=== PATIENT | male | born 1960 | race Asian ===

== ENCOUNTER 2018-05-11 09:57 | Emergency (ER) | payer BC ==
[~2018-05-11] VITALS: Ht 167.6 cm; Wt 72.6 kg
[2018-05-11 10:05] VITALS: BP 148/94
--- NOTE | 2018-05-11 10:05 | NUR ---
ED Nurse Note: pt walked in to ED due to abdominal pain since yesterday after playing basketball. tender noted upper umblicus area. pt denies n/v/d. last BM was this mornign and it was normal. AAO x4. respirations even and non-labored noted. skin warm to touch. no open wound noted. on cafeteria monitor. will wait for the further order. son at the bed side.
[2018-05-11] MEDS ORDERED: NKM (10:08)
[2018-05-11] MEDS ORDERED: Isovue-300 100ml vial INJ PRN (10:30)
--- NOTE | 2018-05-11 10:30 | Emergency Room Report ---
History of Present Illness General Chief Complaint: Abdominal Pain Source: Patient Present Illness HPI Patient present with mid abdominal pain with a palpable mass reports that yesterday he was playing basketball While riding his bicycle home he felt increased pain in the mid abdomen Saw his primary physician was sent to the ER for further eval Denies any acute fall or other obvious trauma denies any chest pain or shortness of breath Denies any vomiting or diarrhea patient did have a bowel movement yesterday Pain is worse with touch Allergies: Coded Allergies: No Known Allergies (Unverified , 05/11/18) Patient History Past Medical History: see triage record Pertinent Family History: none Reviewed Nursing Documentation: PMH: Agreed; PSxH: Agreed Nursing Documentation-PMH Past Medical History: No Stated History Review of Systems All Other Systems: negative except mentioned in HPI Physical Exam Vital Signs Date Time Temp Pulse Resp B/P (MAP) Pulse Ox O2 Delivery O2 Flow Rate FiO2 05/11/18 10:04 98.1 51 14 160/93 98 Room Air Sp02 EP Interpretation: reviewed, normal General Appearance: no apparent distress Head: normocephalic, atraumatic Eyes: bilateral eye PERRL, bilateral eye EOMI ENT: hearing grossly normal, normal pharynx Neck: supple Respiratory: lungs clear, no respiratory distress, no retraction Cardiovascular #1: regular rate, rhythm Gastrointestinal: other - There is a palpable region just above the umbilical area irregular in shape approximately 3 x 2 cm, there is some firmness palpated twisted no obvious bowel gas sounds Genitourinary: no CVA tenderness Musculoskeletal: normal inspection Neurologic: alert, oriented x3 Skin: normal color, no rash Lymphatic: no adenopathy Medical Decision Making Diagnostic Impression: Primary Impression: Incarcerated ventral hernia Additional Impression: hernia, reduced ER Course With the history exam and presentation, multiple differentials considered, including but not limited to appendicitis, gastritis, cholecystitis, diverticulitis CT imaging does show evidence of a hernia Clinically I did also attempt reduction however was not successful Gen. surgery was consulted Please refer to Dr. Millan note for full specific however the hernia was reduced with further application of pressure Patient reevaluated after and is fully resolved with his discomfort Denies any nausea Cleared through surgery for outpatient care Blood work also at baseline levels Patient will require close outpatient follow-up CBC negative CMP negative UA negative CT/MRI/US Diagnostic Results CT/MRI/US Diagnostic Results : Impression CT abdomen pelvisImpression: Small midline ventral hernia, containing only fat, through the central rectus abdominis tendon cephalad to the umbilicus. There is slight infiltration of the hernia contents and surrounding fat which could indicate strangulation. Correlate with clinical findings Limited assessment of the GI tract, due to lack of enteric contrast demonstration Equivocal mild wall thickening and enhancement of the proximal jejunum, if real could indicate mild enteritis changes. Correlate with clinical finding Equivocal mild fatty liver 2 x 1 cm left adrenal nodule. Consider follow-up adrenal CT in one year Prominent prostate Incidental findings as noted, including basilar pulmonary dependent atelectatic changes, degenerative lumbar spondylosis, left upper pole renal cyst Last Vital Signs Date Time Temp Pulse Resp B/P (MAP) Pulse Ox O2 Delivery O2 Flow Rate FiO2 05/11/18 10:04 98.1 51 14 160/93 98 Room Air Status: improved Disposition: HOME, SELF-CARE Condition: Improved Additional Instructions: Patient is provided with the discharge instructions notified to follow up with primary doctor in the next 2-3 days otherwise return to the er with any worsening symptoms. Please note that this report is being documented using [employer] technology. This can lead to erroneous entry secondary to incorrect interpretation by the dictating instrument. Guera Montague DO May 11, 2018 10:30
--- NOTE | 2018-05-11 10:30 | NUR ---
ED Nurse Note: pt refused pain meds. Dr. Montague will notified.
[2018-05-11] MEDS: Ketorolac 30mg Inj IV ONE ×2 (10:34→10:37)
[2018-05-11 10:43] LABS: APPEARANCE,URINE CLEAR; BILIRUBIN, URINE NEGATIVE (NEGATIVE); COLOR,URINE PALE YELLOW; GLUCOSE, URINE (UA) NEGATIVE (NEGATIVE); KETONES,URINE NEGATIVE (NEGATIVE); LEUKOCYTE ESTERASE ,URINE 1+ (NEGATIVE); NITRITE,URINE NEGATIVE (NEGATIVE); PH,URINE 6 (4.5-8.0); PROTEIN,URINE NEGATIVE (NEGATIVE); UROBILINOGEN,URINE NORMAL MG/DL (0.0-1.0)
[2018-05-11 10:48] LABS: EOSINOPHILS % (AUTO) 2.1 % (0.0-3.0); HEMATOCRIT 52.2 % (42.0-52.0); HEMOGLOBIN 16.7 G/DL (14.2-18.0); LYMPHOCYTES % (AUTO) 30.8 % (20.0-45.0); MEAN CORPUSCULAR VOLUME 88 FL (80-99); MONOCYTES % (AUTO) 10.2 % (1.0-10.0); NEUTROPHILS % (AUTO) 54.9 % (45.0-75.0); PLATELET COUNT 244 K/UL (150-450); RED BLOOD COUNT 5.95 M/UL (4.70-6.10); RED CELL DISTRIBUTION WIDTH 12.7 % (11.6-14.8); WHITE BLOOD COUNT 7.5 K/UL (4.8-10.8)
[2018-05-11 10:57] LABS: ANION GAP 6 mmol/L (5-15); BLOOD UREA NITROGEN 16 mg/dL (7-18); CALCIUM 9.1 MG/DL (8.5-10.1); CARBON DIOXIDE 28 MMOL/L (21-32); CHLORIDE 107 MMOL/L (98-107); CREATININE 1.1 MG/DL (0.55-1.30); POTASSIUM 4.5 MMOL/L (3.5-5.1); SODIUM 141 MMOL/L (136-145)
[2018-05-11 11:00] LABS: ALANINE AMINOTRANSFERASE 38 U/L (12-78); ALBUMIN/GLOBULIN RATIO 1.4 (1.0-2.7); ALKALINE PHOSPHATASE 46 U/L (46-116); ASPARTATE AMINO TRANSFERASE 30 U/L (15-37); BILIRUBIN,TOTAL 0.9 MG/DL (0.2-1.0)
--- NOTE | 2018-05-11 11:16 | NUR ---
ED Nurse Note: received report from JUAN Moss and endorsed care, pt currently at [place].
[2018-05-11 12:00] VITALS: BP 138/76
--- NOTE | 2018-05-11 12:03 | Diagnostic Imaging Report ---
Clinical Indication: Abdominal pain and palpable mass, increased pain in mid abdomen after playing basketball Technique: No oral contrast utilized, per emergency room physician request IV administration nonionic contrast. Venous phase spiral acquisition obtained through the abdomen and pelvis. Multiplanar reconstructions were generated. Total dose length product 618.63 mGycm. CTDIvol(s) 12.33 mGy. Dose reduction achieved using automated exposure control Comparison: none Findings: There is a tiny umbilical hernia which contains only fat. Cephalad to this, there is a midline ventral hernia through the central rectus abdominis tendon which contains fat. There is some infiltration of the hernia contents and the fat immediately surrounding it. Lack of enteric contrast limits assessment of the GI tract. The appendix is normal. There is no evidence of colonic diverticulosis or diverticulitis. No small bowel distention. There is equivocal minimal wall thickening and hyperemia of the proximal jejunum. No free or loculated intraperitoneal gas or fluid is evident the distal esophagus, stomach, duodenum are unremarkable. The liver is equivocally mildly hypoattenuating. No focal abnormality. The gallbladder, bile ducts, pancreas, spleen, right adrenal are unremarkable. The left adrenal demonstrates a 1 x 2 cm nodule. The left kidney demonstrates an upper pole cyst. The right kidney is unremarkable. No retroperitoneal or mesenteric mass or adenopathy. No pelvic mass or adenopathy. The prostate is somewhat prominent. There are posterior dependent pulmonary atelectatic changes. There are degenerative changes of the lumbar spine. Impression: Small midline ventral hernia, containing only fat, through the central rectus abdominis tendon cephalad to the umbilicus. There is slight infiltration of the hernia contents and surrounding fat which could indicate strangulation. Correlate with clinical findings Limited assessment of the GI tract, due to lack of enteric contrast demonstration Equivocal mild wall thickening and enhancement of the proximal jejunum, if real could indicate mild enteritis changes. Correlate with clinical finding Equivocal mild fatty liver 2 x 1 cm left adrenal nodule. Consider follow-up adrenal CT in one year Prominent prostate Incidental findings as noted, including basilar pulmonary dependent atelectatic changes, degenerative lumbar spondylosis, left upper pole renal cyst The CT scanner at [facility] is accredited by the [employer] and the scans are performed using protocols designed to limit radiation exposure to as low as reasonably achievable to attain images of sufficient resolution adequate for diagnostic evaluation.
--- NOTE | 2018-05-11 13:30 | NUR ---
ED Nurse Note: Dr. cruz at the bedside.
[2018-05-11 14:06] VITALS: BP 140/87
--- NOTE | 2018-05-11 14:06 | NUR ---
ED Nurse Note: pt cleared to be d/c per ERMD, pt discharge and aftercare instruction provided, pt advised to follow up with pcp or return to ed if sx worsen or new sx develop, pt wristband and iv d/c, pt education done via discussion and handout, pt verbalized understanding and agrees with plan, vss, ambulatory w/ steady gait, left w/ all belongings.
--- NOTE | 2018-05-11 14:48 | Consultation ---
History of Present Illness General Reason for Hospitalization: Abdominal Pain Present Illness HPI Otherwise healthy 57-year-old male presents emerge [place] [facility] [place] of worsening abdominal pain. Patient states that after playing plunkett ball yesterday he noted some abdominal discomfort above the umbilicus in the midline and went to an urgent care center where he was identified to have potentially a hernia given a palpable mass. He was recommended to see his PCP to get referral for imaging. He saw his PCP today who evaluated him noted abdominal tenderness and a palpable mass and referred him to the emergency department for evaluation. In emergency department patient was noted to be afebrile hematemesis stable with normal labs. CT scan identified a ventral hernia. Ventral hernia identified to be incarcerated as it was not initially reduced in the ED and therefore surgery was called to evaluate. Patient seen, patient examined, chart reviewed. Denies any nausea vomiting fever chills. No change in bowel habits. Complains of 6 out of 10 tenderness which is worse upon palpating the incarcerated ventral hernia mass. Allergies: Coded Allergies: No Known Allergies (Unverified , 05/11/18) Medication History Scheduled No Known Medications* (NKM - No Known Medications*), 0 ., (Reported) Patient History History Provided By: Patient, Medical Record, PMD Healthcare decision maker Resuscitation status Advanced Directive on File Review of Systems Review of Symptoms General ROS: no weight loss or fever Psychological ROS: no depression or mood changes, no memory loss Ophthalmic ROS: no visual changes or eye irritation ENT ROS: no nasal congestion, hearing loss, dizziness Allergy and Immunology ROS: no allergic symptoms or urticaria Hematological and Lymphatic ROS: no swollen glands, unusual bleeding or bruising Endocrine ROS: no polyuria, polydipsia, weight changes, temperature intolerance Respiratory ROS: no cough, shortness of breath, or wheezing Cardiovascular ROS: no chest pain or dyspnea on exertion Gastrointestinal ROS: denies abdominal pain, bright red blood in stool. Musculoskeletal ROS: no myalgias or arthralgias Neurological ROS: no TIA or stroke symptoms Dermatological ROS: no new or changing skin lesions, rashes or pruritis Physical Exam Physical Exam General appearance: alert, cooperative, no distress, appears stated age Head: Normocephalic, without obvious abnormality, atraumatic Eyes: conjunctivae/corneas clear. PERRL, EOM's intact. Fundi benign Throat: Lips, mucosa, and tongue normal. Teeth and gums normal Neck: supple, symmetrical, trachea midline, no adenopathy, thyroid: not enlarged, symmetric, no tenderness/mass/nodules, no carotid bruit and no JVD Lungs: clear to auscultation bilaterally Heart: regular rate and rhythm, S1, S2 normal, no murmur, click, rub or gallop Abdomen: soft, non-tender. Bowel sounds normal. No masses, no organomegaly. incarcerated ventral hernia supraumbilical midline to the right Extremities: extremities normal, atraumatic, no cyanosis or edema Pulses: 2+ and symmetric Skin: Skin color, texture, turgor normal. No rashes or lesions Neurologic: Grossly normal Last 24 Hour Vital Signs Date Time Temp Pulse Resp B/P (MAP) Pulse Ox O2 Delivery O2 Flow Rate FiO2 05/11/18 10:05 86 20 Room Air 05/11/18 10:05 98.0 86 20 148/94 99 Room Air 05/11/18 10:04 98.1 51 14 160/93 98 Room Air Laboratory Tests Test 05/11/18 10:32 White Blood Count 7.5 K/UL (4.8-10.8) Red Blood Count 5.95 M/UL (4.70-6.10) Hemoglobin 16.7 G/DL (14.2-18.0) Hematocrit 52.2 % (42.0-52.0) H Mean Corpuscular Volume 88 FL (80-99) Mean Corpuscular Hemoglobin 28.2 PG (27.0-31.0) Mean Corpuscular Hemoglobin Concent 32.1 G/DL (32.0-36.0) Red Cell Distribution Width 12.7 % (11.6-14.8) Platelet Count 244 K/UL (150-450) Mean Platelet Volume 6.5 FL (6.5-10.1) Neutrophils (%) (Auto) 54.9 % (45.0-75.0) Lymphocytes (%) (Auto) 30.8 % (20.0-45.0) Monocytes (%) (Auto) 10.2 % (1.0-10.0) H Eosinophils (%) (Auto) 2.1 % (0.0-3.0) Basophils (%) (Auto) 2.0 % (0.0-2.0) Urine Color Pale yellow Urine Appearance Clear Urine pH 6 (4.5-8.0) Urine Specific [place] 1.015 (1.005-1.035) Urine Protein Negative (NEGATIVE) Urine Glucose (UA) Negative (NEGATIVE) Urine Ketones Negative (NEGATIVE) Urine Blood Negative (NEGATIVE) Urine Nitrite Negative (NEGATIVE) Urine Bilirubin Negative (NEGATIVE) Urine Urobilinogen Normal MG/DL (0.0-1.0) Urine Leukocyte Esterase 1+ (NEGATIVE) H Urine RBC 0 /HPF (0 - 0) Urine WBC 0-2 /HPF (0 - 0) Urine Squamous Epithelial Cells None /LPF (NONE/OCC) Urine Bacteria None /HPF (NONE) Sodium Level 141 MMOL/L (136-145) Potassium Level 4.5 MMOL/L (3.5-5.1) Chloride Level 107 MMOL/L (98-107) Carbon Dioxide Level 28 MMOL/L (21-32) Anion Gap 6 mmol/L (5-15) Blood Urea Nitrogen 16 mg/dL (7-18) Creatinine 1.1 MG/DL (0.55-1.30) Estimat Glomerular Filtration Rate > 60 mL/min (>60) Glucose Level 95 MG/DL (74-106) Calcium Level 9.1 MG/DL (8.5-10.1) Total Bilirubin 0.9 MG/DL (0.2-1.0) Aspartate Amino Transf (AST/SGOT) 30 U/L (15-37) Alanine Aminotransferase (ALT/SGPT) 38 U/L (12-78) Alkaline Phosphatase 46 U/L (46-116) Total Protein 6.9 G/DL (6.4-8.2) Albumin 4.0 G/DL (3.4-5.0) Globulin 2.9 g/dL Albumin/Globulin Ratio 1.4 (1.0-2.7) Lipase 228 U/L (73-393) Height (Feet): 5 Height (Inches): 6.00 Weight (Pounds): 160 Medications Current Medications Medications (Trade) Dose Ordered Sig/Samia Route PRN Reason Start Time Stop Time Status Last Admin Dose Admin Iopamidol (Isovue-300 100ml) 100 ml NOW PRN INJ Radiology Procedure 05/11/18 10:30 Sodium Chloride 1,000 ml @ 100 mls/hr Q10H ONCE IV 05/11/18 10:26 05/11/18 20:25 05/11/18 10:33 Assessment/Plan Problem List: (1) Incarcerated ventral hernia Assessment & Plan: 57-year-old male with a incarcerated ventral hernia. CT scan noted as below. Patient afebrile hemodynamic stable and normal labs. On evaluation the emergency department I was able to reduce the fat-containing ventral hernia without complication. Patient noted immediate relief of discomfort and over the next few minutes pain almost completely resolved. At this time no acute surgical intervention is necessary. I long discussion with patient about findings and recommend that he follows up with his PCP immediately for referral to a surgeon in his insurance network to have elective repair of his now reducible ventral hernia. Patient expressed understanding will be discharged safely with follow-up with his primary care physician who I personally called and spoke to for referral to a surgeon in network for elective repair. Diet as tolerated this consultation and allowing me to participate in patient's care ICD Codes: K43.6 - Other and unspecified ventral hernia with obstruction, without gangrene SNOMED: [id number] Cole Millan May 11, 2018 14:48
--- NOTE | 2018-05-13 15:53 | Consultation ---
Consult Note Consult Note Present Illness HPI Otherwise healthy 57-year-old male presents emerge department [facility] complaining of worsening abdominal pain. Patient states that after playing plunkett ball yesterday he noted some abdominal discomfort above the umbilicus in the midline and went to an urgent care center where he was identified to have potentially a hernia given a palpable mass. He was recommended to see his PCP to get referral for imaging. He saw his PCP today who evaluated him noted abdominal tenderness and a palpable mass and referred him to the emergency department for evaluation. In emergency department patient was noted to be afebrile hematemesis stable with normal labs. CT scan identified a ventral hernia. Ventral hernia identified to be incarcerated as it was not initially reduced in the ED and therefore surgery was called to evaluate. Patient seen, patient examined, chart reviewed. Denies any nausea vomiting fever chills. No change in bowel habits. Complains of 6 out of 10 tenderness which is worse upon palpating the incarcerated ventral hernia mass.Hernia reduced by surgery. Allergies: Coded Allergies: No Known Allergies (Unverified , 05/11/18) Medication History Scheduled No Known Medications* (NKM - No Known Medications*), 0 ., (Reported) Patient History History Provided By: Patient, Medical Record, PMD Healthcare decision maker Resuscitation status Advanced Directive on File Review of Systems Review of Systems Review of Symptoms General ROS: no weight loss or fever Psychological ROS: no depression or mood changes, no memory loss Ophthalmic ROS: no visual changes or eye irritation ENT ROS: no nasal congestion, hearing loss, dizziness Allergy and Immunology ROS: no allergic symptoms or urticaria Hematological and Lymphatic ROS: no swollen glands, unusual bleeding or bruising Endocrine ROS: no polyuria, polydipsia, weight changes, temperature intolerance Respiratory ROS: no cough, shortness of breath, or wheezing Cardiovascular ROS: no chest pain or dyspnea on exertion Gastrointestinal ROS: denies abdominal pain, bright red blood in stool. Musculoskeletal ROS: no myalgias or arthralgias Neurological ROS: no TIA or stroke symptoms Dermatological ROS: no new or changing skin lesions, rashes or pruritis Physical Exam Physical Exam Physical Exam General appearance: alert, cooperative, no distress, appears stated age Head: Normocephalic, without obvious abnormality, atraumatic Eyes: conjunctivae/corneas clear. PERRL, EOM's intact. Fundi benign Throat: Lips, mucosa, and tongue normal. Teeth and gums normal Neck: supple, symmetrical, trachea midline, no adenopathy, thyroid: not enlarged, symmetric, no tenderness/mass/nodules, no carotid bruit and no JVD Lungs: clear to auscultation bilaterally Heart: regular rate and rhythm, S1, S2 normal, no murmur, click, rub or gallop Abdomen: soft, non-tender. Bowel sounds normal. No masses, no organomegaly. previously incarcerated ventral hernia supraumbilical midline to the right Extremities: extremities normal, atraumatic, no cyanosis or edema Pulses: 2+ and symmetric Skin: Skin color, texture, turgor normal. No rashes or lesions Neurologic: Grossly normal Last 24 Hour Vital Signs Date Time Temp Pulse Resp B/P (MAP) Pulse Ox O2 Delivery O2 Flow Rate FiO2 05/11/18 10:05 86 20 Room Air 05/11/18 10:05 98.0 86 20 148/94 99 Room Air 05/11/18 10:04 98.1 51 14 160/93 98 Room Air Laboratory Tests Test 05/11/18 10:32 White Blood Count 7.5 K/UL (4.8-10.8) Red Blood Count 5.95 M/UL (4.70-6.10) Hemoglobin 16.7 G/DL (14.2-18.0) Hematocrit 52.2 % (42.0-52.0) H Mean Corpuscular Volume 88 FL (80-99) Mean Corpuscular Hemoglobin 28.2 PG (27.0-31.0) Mean Corpuscular Hemoglobin Concent 32.1 G/DL (32.0-36.0) Red Cell Distribution Width 12.7 % (11.6-14.8) Platelet Count 244 K/UL (150-450) Mean Platelet Volume 6.5 FL (6.5-10.1) Neutrophils (%) (Auto) 54.9 % (45.0-75.0) Lymphocytes (%) (Auto) 30.8 % (20.0-45.0) Monocytes (%) (Auto) 10.2 % (1.0-10.0) H Eosinophils (%) (Auto) 2.1 % (0.0-3.0) Basophils (%) (Auto) 2.0 % (0.0-2.0) Urine Color Pale yellow Urine Appearance Clear Urine pH 6 (4.5-8.0) Urine Specific [place] 1.015 (1.005-1.035) Urine Protein Negative (NEGATIVE) Urine Glucose (UA) Negative (NEGATIVE) Urine Ketones Negative (NEGATIVE) Urine Blood Negative (NEGATIVE) Urine Nitrite Negative (NEGATIVE) Urine Bilirubin Negative (NEGATIVE) Urine Urobilinogen Normal MG/DL (0.0-1.0) Urine Leukocyte Esterase 1+ (NEGATIVE) H Urine RBC 0 /HPF (0 - 0) Urine WBC 0-2 /HPF (0 - 0) Urine Squamous Epithelial Cells None /LPF (NONE/OCC) Urine Bacteria None /HPF (NONE) Sodium Level 141 MMOL/L (136-145) Potassium Level 4.5 MMOL/L (3.5-5.1) Chloride Level 107 MMOL/L (98-107) Carbon Dioxide Level 28 MMOL/L (21-32) Anion Gap 6 mmol/L (5-15) Blood Urea Nitrogen 16 mg/dL (7-18) Creatinine 1.1 MG/DL (0.55-1.30) Estimat Glomerular Filtration Rate > 60 mL/min (>60) Glucose Level 95 MG/DL (74-106) Calcium Level 9.1 MG/DL (8.5-10.1) Total Bilirubin 0.9 MG/DL (0.2-1.0) Aspartate Amino Transf (AST/SGOT) 30 U/L (15-37) Alanine Aminotransferase (ALT/SGPT) 38 U/L (12-78) Alkaline Phosphatase 46 U/L (46-116) Total Protein 6.9 G/DL (6.4-8.2) Albumin 4.0 G/DL (3.4-5.0) Globulin 2.9 g/dL Albumin/Globulin Ratio 1.4 (1.0-2.7) Lipase 228 U/L (73-393) Height (Feet): 5 Height (Inches): 6.00 Weight (Pounds): 160 Medications Current Medications Medications (Trade) Dose Ordered Sig/Samia Route PRN Reason Start Time Stop Time Status Last Admin Dose Admin Iopamidol (Isovue-300 100ml) 100 ml NOW PRN INJ Radiology Procedure 05/11/18 10:30 Sodium Chloride 1,000 ml @ 100 mls/hr Q10H ONCE IV 05/11/18 10:26 05/11/18 20:25 05/11/18 10:33 Assessment/Plan Assessment/Plan Problem List: (1) Incarcerated ventral hernia Assessment & Plan: 57-year-old male with a incarcerated ventral hernia. CT scan noted as below. Patient afebrile hemodynamic stable and normal labs. Patient noted immediate relief of discomfort and over the next few minutes pain almost completely resolved after reduction of hernia. At this time no acute surgical intervention is necessary. Patient expressed understanding will be discharged safely with follow-up with his primary care physician. Joaquin Lopez MD May 13, 2018 15:53
== END 2018-05-11 14:06 | disposition home or self-care (01) ==
LOC: EMR 12:11 → CANBEDREQ 13:57 → EMR 14:06
DX: K43.6 Other and unspecified ventral hernia with obstruction, without gangrene (principal)
CPT/HCPCS: 36415; 74177; 80053; 81003; 83690; 85025; 96360; 96361; 99284; Q9967